=== PATIENT | male | born 1955 | race Caucasian/White ===

== ENCOUNTER 2017-02-27 12:21 | Observation (INO) | payer OTHER ==
--- NOTE | ~2017-02-27 | DS ---
Discharge Summary [address] [place]. [address] NAME: VI BOLDEN : 51 STATUS : DIS Lupis PAT#: [id number] AGE: 61 ADM/REG DATE : 02/27/17 MR#: [id number] REPORT SERV DATE: 03/01/17 DICTATED BY: JR. DACOSTA WILLIAM JOHN DATE: 02/28/17 REPORT STATUS : Draft TRANSCRIBED BY: LAN DATE: 02/28/17 ADMISSION DATE: 02/27/2017 DISCHARGE DATE: 02/28/2017 DISCHARGE DIAGNOSES: Include: 1. Status post fall x2 with presyncope. 2. Presyncope. 3. History of permanent pacemaker. 4. Posterior head laceration, status post repair. 5. Insulin-requiring diabetes mellitus type 2 with long-term insulin use. 6. Essential hypertension. 7. Acute kidney injury. OPERATIONS/PROCEDURES AND TREATMENTS: Include: 1. CT of the brain done 02/27/2017, which showed no evidence of acute intracranial traumatic injury or pathology. There is small posterior left frontal scalp hematoma. 2. Chest x-ray, done 02/27/2017, which showed cardiomegaly with median sternotomy changes for bypass, also with a pacemaker and AICD in place with mild venous congestion. 3. CT of the C-spine done 02/27/2017 showed no evidence of acute traumatic injury to the C- spine. There is grade 1 spondylolisthesis of C4 and C5 and upper left cervical facet arthropathy with low cervical spondylosis. 4. Orthostatic vital signs which showed a supine blood pressure of 116/58, heart rate 74, sitting blood pressure of 113/60 with heart rate 86, standing blood pressure 116/59 with heart rate of 90. DISCHARGE MEDICATIONS: Include: 1. Lipitor 40 mg orally daily. 2. Digoxin 0.125 mg orally daily. 3. Neurontin 800 mg four times a day. 4. U-500 insulin 75 to 125 units subcutaneously with meals. 5. Metformin 2000 mg orally with supper. 6. Imdur 30 mg orally daily. 7. Metoprolol succinate 50 mg orally daily. 8. Aldactone 25 mg daily. 9. Flomax 0.4 mg daily. 10.Torsemide 20 mg daily. 11.Lisinopril 10 mg orally daily. 12.Albuterol nebulizer p.r.n. 13.Albuterol metered-dose inhaler two puffs as needed. 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 [place] was awake most of the night. He Discharge Summary [address] [facility] [place]. [address] NAME: VI BOLDEN : 51 STATUS : DIS Lupis PAT#: [id number] AGE: 61 ADM/REG DATE : 02/27/17 MR#: [id number] REPORT SERV DATE: 03/01/17 DICTATED BY: JR. DACOSTA WILLIAM JOHN DATE: 02/28/17 REPORT STATUS : Draft TRANSCRIBED BY: LAN DATE: 02/28/17 said he got somewhat lightheaded, was going [place], fell injuring his left knee. He then went back to fishing, had a second episode. He fell while going up the bank again, fell backwards on his head and suffered a head laceration. The patient says in both occasions he remembers falling. He had no loss of consciousness at all. He was apparently air life flighted to [facility] due to his remote location. Workup in the emergency room included a CT of the head, which showed no intracranial pathology; CT of the cervical spine, which is detailed above; and chest x-ray, which is detailed above. The patient's initial exam showed temperature of 97.6, heart rate 79, and respiratory rate 12. Blood pressure 122/54, apparently orthostatic vital signs in the emergency room showed a decline in systolic blood pressure to less than 100, meaning greater than 20 mmHg drop with position change. Exam was otherwise unremarkable. Initial laboratory showed a troponin of 0.05. BUN and creatinine were 22 and 1.5. ABG showed a pH of 7.3, pCO2 of 45, and PO2 of 89. The patient was admitted to the Clinical Decision Unit. He was observed. Repeat orthostatic vital signs showed no orthostasis. The patient's pacemaker was interrogated, showed no evidence of failure. No events noted. Urine drug screen was negative. Urinalysis showed no pyuria. I discussed the options of echocardiogram with the patient. He declined at this time saying that he would prefer to have his primary care physician follow this up, and he desired discharge home. He had no difficulty and again denied any loss of consciousness. Regarding the patient's head laceration, this was stapled in the emergency room. We will need to follow up with his primary care physician in one week for removal of the jojo. Regarding his left knee pain, the patient declined to have x-ray done. He requested again to follow up with his primary care physician. The remainder of the patient's health problems remained stable and were not addressed during this hospitalization. DISCHARGED DIET: ADA. ACTIVITY: As tolerated. For discharge exam and laboratory, please see daily progress note. FOLLOWUP ISSUES: Include: 1. Removal of jojo from the head in one to two weeks. 2. Follow up with primary care physician regarding routine health issues. WSHANAE/LAN Edgar Dacosta Jr, MD Discharge Summary [address] [address] NAME: VI BOLDEN : 51 STATUS : DIS Lupis PAT#: [id number] AGE: 61 ADM/REG DATE : 02/27/17 MR#: [id number] REPORT SERV DATE: 03/01/17 DICTATED BY: JR. DACOSTA WILLIAM JOHN DATE: 02/28/17 REPORT STATUS : Draft TRANSCRIBED BY: LAN DATE: 02/28/17 / [id number] CC: Edgar Dacosta Jr, MD
--- NOTE | ~2017-02-27 | HP ---
History And Physical [address] [place]. [address] NAME: VI BOLDEN : 51 STATUS : ADM Lupis PAT#: [id number] AGE: 61 ADM/REG DATE : 02/27/17 MR#: [id number] REPORT SERV DATE: 02/27/17 DICTATED BY: MELISSA RAHMAN DATE: 02/27/17 REPORT STATUS : Draft TRANSCRIBED BY: MODL DATE: 02/27/17 DATE OF ADMISSION: 02/27/2017 CHIEF COMPLAINT: Syncope with head trauma to posterior head. Of note, the patient was life flighted in, as he was in [place] [employer]. 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 Due to geographics, the patient was life flighted for evaluation. The patient reports that he constantly has episodes of having dizziness spells, although he does have borderline low blood pressure. He is on multiple medications for his heart that do affect his blood pressure. Although syncope did cause the patient to have laceration, this was able to be stapled in the emergency room. The patient has had mild increased tiredness after the episode and concern for safety was also noted. The patient's symptoms of trauma to the back of the head or syncope have been intermittent. No other prior episodes similar to this. Moderate severity with no current pain, radiating symptoms. Did have occasional diaphoresis and shaking episode during this time with mild chest pain. No nausea, vomiting, fever, swelling, redness have been noted. There are no worsening factors or relieving factors appreciated. The patient's blood pressure initially was 70 systolic upon arrival, but here has been noted to be 122/54. Initial surveillance has been negative. ADDITIONAL REVIEW OF SYSTEMS: GENERAL: Noted for mild chills and fall, diaphoresis which is resolved. EYES: No eye pain or visual changes. ENT: No sore throat or congestion. NEURO: No headache or confusion, but did have syncope episode. SKIN: Abrasion and, laceration to occiput. RESPIRATIONS: No shortness of breath or dyspnea on exertion. CV: Mild chest discomfort with twinging episodes during event. No palpitations. GI: No nausea, vomiting, diarrhea, or constipation. : No dysuria, but does have occasional retention. MUSCULOSKELETAL: No arthralgias or myalgias. ENDO: No fatigue or polyuria. HEME: No bleeding or bruising except at site on posterior occiput. IMMUNOLOGIC: No rhinorrhea. PSYCH: No anxiety or confusion. PAST MEDICAL HISTORY: Noted for hypertension, kidney stones, diabetes type 2, hyperlipidemia, coronary artery disease status post five-vessel bypass and additionally pacer history. FAMILY HISTORY: Coronary artery disease and diabetes. History And Physical [address] [address] NAME: VI BOLDEN : 51 STATUS : ADM Lupis PAT#: [id number] AGE: 61 ADM/REG DATE : 02/27/17 MR#: [id number] REPORT SERV DATE: 02/27/17 DICTATED BY: MELISSA RAHMAN DATE: 02/27/17 REPORT STATUS : Draft TRANSCRIBED BY: LAN DATE: 02/27/17 SURGICAL HISTORY: CABG and pacer. ALLERGIES: COREG. SOCIAL HISTORY: Lives with daughter. No smoking, alcohol, or illicits. MEDICATIONS: Albuterol, Lipitor, digoxin, Neurontin, U-500, Imdur, lisinopril, metformin, metoprolol, Aldactone, Flomax, Demadex. EKG: Noted for rate of 79, QTc 573, atrial sensed ventricular paced with occasional PVCs. EKG read concern for unspecified pacemaker failure. PHYSICAL EXAMINATION: VITAL SIGNS: The patient's blood pressure 122/54, decreases to less than 100 systolic with orthostatics; temperature 97.6; pulse 79; respirations are 12; O2 saturations 94%. GENERAL: Elderly, well developed, well nourished, but no acute distress. EYES: No scleral icterus. EOMI. ENT: Approximately 1- to 2-cm occipital scalp lesion with two jojo. Moist mucous membranes. Tongue midline. RESPIRATORY: Clear to auscultation. No wheezes or rales. CV: Regular rate. No rubs. CHEST: Chest wall does have pacemaker site on left anterior chest wall. No erythema. GI: Soft, nontender, nondistended. Bowel sounds positive. : Deferred. MUSCULOSKELETAL: Moves all extremities x4. SKIN: Warm and dry. LYMPH: No cervical or supraclavicular lymphadenopathy. HEME: No bleeding or bruising except at occiput laceration site. NEURO: Alert and oriented. Moves all extremities x4. No lethargy during examination at this time, but was noted earlier. Symmetrical strength in upper and lower extremities. No nystagmus. PSYCH: Appropriate mood and affect. LABORATORY DATA: Negative leukocyte esterase and nitrite. UDS negative. CBC, WBC count 13.9, H and H 13.7 and 40.1 with platelets 226, INR 1.1. CMP, sodium 141, potassium 3.6, bicarb 24, BUN and creatinine of 22 and 1.51 previously 0.8 in 2009, glucose 142. LFTs within normal limits. Troponin 0.05. Alcohol level negative. Portable chest, cardiomegaly with prior median sternotomy for CABG and pacing device in place. Mild venous congestion. Brain without contrast, no evidence of acute intracranial traumatic injury. Pathology, small posterior left frontal scalp hematoma. Cervical spine, negative acute trauma grade 1 spondylolisthesis C4-C5, upper left cervical facet arthropathy, and low cervical spondylolysis. ABG; pH 7.3, pCO2 of 45, PO2 of 89, bicarb 21.82. ASSESSMENT AND PLAN: 1. Orthostatic syncope. 2. Possible pacer failure. 3. Head laceration. History And Physical [address] [address] NAME: VI BOLDEN : 51 STATUS : ADM Lupis PAT#: [id number] AGE: 61 ADM/REG DATE : 02/27/17 MR#: [id number] REPORT SERV DATE: 02/27/17 DICTATED BY: MELISSA RAHMAN DATE: 02/27/17 REPORT STATUS : Draft TRANSCRIBED BY: MODEdgar DATE: 02/27/17 4. Diabetes. 5. Hypertension. 6. Leukocytosis. 7. Hyperlipidemia. 8. Acute kidney injury. PLAN: 1. For orthostatic syncope, check orthostatics. Optimize medications. Check digoxin level. Has had history of having elevated digoxin level in the past. Serial orthostatics and serial neuro exams. 2. Possible pacer failure, [facility]. If abnormal, we will have a consult to Electrophysiology. The patient does not have electrophysiology currently at this facility, and follows at [employer]. 3. Head laceration. Two jojo in place. Neuro checks to be continued. 4. Diabetes type 2. Takes U-500 per reports, very difficult to control. We will have sliding scale and Levemir. Diabetic education. Check A1c. 5. Hypertension. Currently, he does have orthostatics. Optimize medications. 6. Leukocytosis. Unclear. Did not appear infectious etiology. We will need to monitor. Possible stress reaction response. 7. Hyperlipidemia, statin. 8. MILAN. Hold CHETNA inhibitor, Demadex, and spironolactone, and monitor with hypotensive event with orthostasis. Gentle IV fluids. Continue to reassess. DDN/MODL Melissa Rahman MD / [id number] CC: Edgar Dacosta Jr, MD
[2017-02-27 12:16] LABS: BASOPHILS 0.2 %; BASOPHILS ABSOLUTE 0.03 10/3/uL (0.0-0.16); EOSINOPHILS 0.7 %; HEMATOCRIT 40.1 % (40.0-51.0); HEMOGLOBIN 13.7 g/dL (13.6-17.8); IMMATURE GRANULOCYTES 0.3 %; IMMATURE GRANULOCYTES ABSOLUTE 0.04 10/3/uL (0.0-0.11); LYMPHOCYTES 11.1 %; LYMPHOCYTES ABSOLUTE 1.54 10/3/uL (0.67-4.30); MEAN CORPUS HGB CONC 34.2 g/dL (32.0-36.0); MEAN CORPUSCULAR HEMOGLOB 31.1 pg (26.0-34.0); MEAN PLATELET VOLUME 10.6 fL (9.2-13.0); MONOCYTES 4.6 %; MONOCYTES ABSOLUTE 0.64 10/3/uL (0.21-1.20); NEUTROPHILS 83.1 %; NEUTROPHILS ABSOLUTE 11.55 10/3/uL (2.02-8.40); PLATELET COUNT 226 10/3/uL (150-400); RBC DISTRIBUTION WIDTH 13.9 % (12.0-16.0); RED CELL COUNT 4.41 10/6/uL (4.7-6.1); WHITE BLOOD CELLS 13.9 10/3/uL (4.5-10.5)
[2017-02-27 12:17] LABS: ER CBC TAT 0 Hrs 08 Mins; MANUAL DIFF NO %; MEAN CORPUSCULAR VOLUME 90.9 fL (80-100)
[2017-02-27 12:18] LABS: ASCORBIC ACID (UR NOT ORDER) NEG (NEG); BILIRUBIN, URINE NEGATIVE (NEG); ER URINALYSIS TAT 0 Hrs 07 Mins; KETONE, URINE TRACE MG/DL (NEG); LEUKOCYTE ESTERASE(NOT OR NEG (NEG); NITRITE (URINE) NEG (NEG); WBC (NOT ORDERED) (RFLEX) 1 (0-5)
[~2017-02-27 12:21] MED LIST: DENIES HOME MEDS
[2017-02-27 12:25] LABS: INTERNATIONAL NORMAL RATI 1.1 UNITS (-)
[2017-02-27 12:36] LABS: AMPHETAMINES (NOT ORD) NEG (NEG); BARBITURATES (NOT ORDERED NEG (NEG); BENZODIAZEPINES (NOT ORD) NEG (NEG); CANNABINOIDS (THC) NEG (NEG); COCAINE (NOT ORDERED) NEG (NEG); OPIATES NEG (NEG); PHENCYCLIDINE(PCP) NEG (NEG); TRICYCLICS NEG (NEG)
[2017-02-27 12:37] LABS: A/G RATIO 0.9 (0.7-1.9); ALBUMIN 3.4 G/DL (3.5-5.0); ALCOHOL < 10 MG/DL (0); ALKALINE PHOSPHATASE 72 U/L (45-117); BUN (BLOOD UREA NITROGEN) 22 MG/DL (6-23); CALCIUM, SERUM 8.1 MG/DL (8.5-10.4); CHLORIDE, SERUM 105 MMOL/L (96-112); CO2 (CARBON DIOXIDE) 24 MMOL/L (24-34); CREATININE 1.51 MG/DL (0.70-1.30); GFR AFRICAN AMERICAN 56 ML/MIN (>=60); GFR NON AFRICAN AMERICAN 48 ML/MIN (>=60); GLOBULIN 3.9 G/DL (2.5-4.1); GLUCOSE, SERUM 142 MG/DL (60-99); POTASSIUM, SERUM 3.6 MMOL/L (3.5-5.3); SGOT(AST) 15 U/L (5-40); SGPT(ALT) 27 U/L (5-65); SODIUM, SERUM 141 MMOL/L (135-148); TOTAL BILIRUBIN 0.8 MG/DL (0-1.2); TOTAL PROTEIN 7.3 G/DL (6.0-8.5); TROPONIN I 0.05 NG/ML (<0.05)
[2017-02-27 14:26] LABS: ALLENS TEST Pos; BE (BASE EXCESS) -4.5 MEQ/L (0 +/- 2.5); CARBOXYHEMOGLOBIN 1.5 % (0-3); HCO3 (ACTUAL BICARBONATE) 21.8 MEQ/L (23-27); HEMOBLOGIN CONTENT 14.6 G/DL (14-18); INSTRUMENT SERIAL # 8087; O2 CONTENT 19.4 VOL% (18-24); PCO2 (CO2 TENSION) 45 MMHG (35-45); PO2 (O2 TENSION) 89 MMHG (79-93); SAMPLE Arterial
[2017-02-27] MEDS ORDERED: SPIRO25 PO (15:06)
[2017-02-27] MEDS ORDERED: LIPITOR40 PO (15:06)
[2017-02-27] MEDS ORDERED: FLOMAX4 PO (15:06)
[2017-02-27] MEDS ORDERED: TOPXL50 PO (15:06)
[2017-02-27] MEDS ORDERED: NEUR800 PO (15:06)
[2017-02-27] MEDS ORDERED: LAN125 PO (15:07)
[2017-02-27] MEDS ORDERED: DEMA20 PO (15:07)
[2017-02-27] MEDS ORDERED: IMDUR30 PO (15:08)
[2017-02-27] MEDS ORDERED: PRIN10 PO (15:08)
[2017-02-27] MEDS ORDERED: FORTAMET1000 MG PO (15:08)
[2017-02-27] MEDS ORDERED: HUMULIN500CONC SC (15:10)
[2017-02-27] MEDS ORDERED: ALBUTEROL5 INH (15:10)
[2017-02-27] MEDS ORDERED: PROAIR HFA INH (15:11)
[2017-02-28 04:30] LABS: BASOPHILS 0.3 %; BASOPHILS ABSOLUTE 0.03 10/3/uL (0.0-0.16); EOSINOPHILS 2.5 %; HEMATOCRIT 39.4 % (40.0-51.0); HEMOGLOBIN 13.2 g/dL (13.6-17.8); IMMATURE GRANULOCYTES 0.3 %; IMMATURE GRANULOCYTES ABSOLUTE 0.03 10/3/uL (0.0-0.11); LYMPHOCYTES 17.5 %; LYMPHOCYTES ABSOLUTE 2.08 10/3/uL (0.67-4.30); MEAN CORPUS HGB CONC 33.5 g/dL (32.0-36.0); MEAN CORPUSCULAR HEMOGLOB 31.4 pg (26.0-34.0); MEAN CORPUSCULAR VOLUME 93.6 fL (80-100); MEAN PLATELET VOLUME 10.8 fL (9.2-13.0); MONOCYTES ABSOLUTE 0.83 10/3/uL (0.21-1.20); NEUTROPHILS 72.4 %; NEUTROPHILS ABSOLUTE 8.63 10/3/uL (2.02-8.40); PLATELET COUNT 233 10/3/uL (150-400); RBC DISTRIBUTION WIDTH 13.9 % (12.0-16.0); RED CELL COUNT 4.21 10/6/uL (4.7-6.1); WHITE BLOOD CELLS 11.9 10/3/uL (4.5-10.5)
[2017-02-28 04:32] LABS: MANUAL DIFF NO %
[2017-02-28 04:50] LABS: ALBUMIN 3.2 G/DL (3.5-5.0); ALKALINE PHOSPHATASE 77 U/L (45-117); BUN (BLOOD UREA NITROGEN) 22 MG/DL (6-23); CHLORIDE, SERUM 105 MMOL/L (96-112); CO2 (CARBON DIOXIDE) 23 MMOL/L (24-34); CPK 109 U/L (0-200); CREATININE 1.15 MG/DL (0.70-1.30); GFR AFRICAN AMERICAN 78 ML/MIN (>=60); GFR NON AFRICAN AMERICAN 67 ML/MIN (>=60); GLOBULIN 3.3 G/DL (2.5-4.1); GLUCOSE, SERUM 162 MG/DL (60-99); SGPT(ALT) 21 U/L (5-65); SODIUM, SERUM 142 MMOL/L (135-148); TOTAL BILIRUBIN 0.4 MG/DL (0-1.2); TOTAL PROTEIN 6.5 G/DL (6.0-8.5)
[2017-02-28 05:02] LABS: PHOSPHORUS, SERUM 4.2 MG/DL (2.5-4.5)
[2017-02-28 05:04] LABS: CALCIUM, SERUM 8.3 MG/DL (8.5-10.4); DIGOXIN 0.5 NG/ML (0.8-2.0); SGOT(AST) 15 U/L (5-40); TROPONIN I 0.05 NG/ML (<0.05)
[2017-02-28 05:30] LABS: B NATRIURETIC PEPTIDE (BNP) 86.9 PG/ML (< 100.0)
[2017-02-28 06:34] LABS: PROCALCITONIN <0.05 ng/mL (<0.5)
[2017-02-28 07:22] LABS: GLYCOHEMOGLOBIN (HbA1c) 8.2 % (4.7-6.1)
== END 2017-02-28 15:24 | disposition home or self-care (01) ==
LOC: ER 12:21 → CDU1 16:24 → CDU2 16:28
PROVIDERS: Emergency Medicine; Student in an Organized Health Care Education/Training Program
DX: R55 Syncope and collapse (principal); I10 Essential (primary) hypertension; E78.5 Hyperlipidemia, unspecified; E11.8 Type 2 diabetes mellitus with unspecified complications; D72.829 Elevated white blood cell count, unspecified; N17.9 Acute kidney failure, unspecified; I25.10 Atherosclerotic heart disease of native coronary artery without angina pectoris; Z82.49 Family history of ischemic heart disease and other diseases of the circulatory system; Z83.3 Family history of diabetes mellitus; Z79.4 Long term (current) use of insulin; Z79.899 Other long term (current) drug therapy; Z95.1 Presence of aortocoronary bypass graft; Z95.0 Presence of cardiac pacemaker; Z88.8 Allergy status to other drugs, medicaments and biological substances; Z98.890 Other specified postprocedural states
CPT/HCPCS: 36600; 70450; 71010; 72125; 80053; 80162; 80305; 81001; 82550; 82805; 82962; 83036; 83735; 83880; 84100; 84145; 84443; 84484; 85025; 85610; 87040; 93005; 96372; 99285; A9270-GY; G0378; G0480